=== PATIENT | female | born 1975 | race Caucasian/White ===

== ENCOUNTER → 2021-10-03 09:32 | Outpatient (CLI) | payer OTHER, MEDICAID, SELFPAY ==
[2021-10-13 18:37] LABS: Anti Mullerian Hormone 0.999 ng/mL (.)
== END ==
PROVIDERS: PCP Student in an Organized Health Care Education/Training Program; Referring Provider Obstetrics & Gynecology; Visit Provider Obstetrics & Gynecology
DX: Z31.69 Encounter for other general counseling and advice on procreation (principal)
CPT/HCPCS: 36415; 82397